=== PATIENT | female | born 2000 | race Caucasian/White ===

== ENCOUNTER 2021-09-18 03:07 | Emergency (ER) | payer OTHER, SELFPAY ==
--- NOTE | ~2021-09-18 | XR_ITS ---
EXAMINATION: XR chest 1V portable 09/18/2021 04:47 INDICATION: Chest pain PROCEDURE: AP portable chest COMPARISON: No prior studies for comparison. FINDINGS: The lungs are clear. The cardiomediastinal silhouette is within normal limits. There are no pleural effusions. There is no pneumothorax suspected. IMPRESSION: 1: NO ACUTE CARDIOPULMONARY DISEASE. Reviewed, dictated and finalized at location A. MATERNAL CHILD
--- NOTE | ~2021-09-18 | CT_ITS ---
EXAMINATION: CT BRAIN W/O DATE: 09/18/2021 04:48 INDICATION: Left arm numbness TECHNIQUE: Computed tomography (CT) of the head was performed without intravenous contrast. The dose- length product was 605.33 mGy-cm. Automated exposure control and iterative reconstruction technique w ere employed. COMPARISON: No prior studies for comparison. FINDINGS: Normal brain parenchymal volume for age. Normal harley-white differentiation. No acute intrac ranial hemorrhage, infarction, mass or mass effect. No ventriculomegaly or midline shift. Midline sagittal images demonstrate a normal corpus callosum, c raniovertebral junction and sella turcica. Basilar cisterns are patent. Paranasal sinuses and mastoids are pneumatized. No depressed skull fractures. IMPRESSION: 1. No acute intracranial abnormality. Reviewed, dictated and finalized at location A. [employer]
[2021-09-18 03:26] VITALS: PULSE 94
[2021-09-18 03:29] VITALS: BP 132/90; PULSE 108; RESP 20; TEMP 36.8; O2SAT 95
--- NOTE | 2021-09-18 03:30 | ECG_ITS ---
Measurements Intervals Luther Rate: 95 P: 72 ME: 160 QRS: 79 QRSD: 93 T: 50 QT: 351 QTc: 442 Interpretive Statements SINUS RHYTHM WITH SINUS ARRHYTHMIA POSSIBLE LEFT ATRIAL ENLARGEMENT INCOMPLETE RIGHT BUNDLE BRANCH BLOCK BASELINE ARTIFACT- II, AVR, AVL, AVF BORDERLINE ECG Electronically Signed On 09-18-2021 7:57:45 [employer] by Kobi Ellis D.O.
[2021-09-18 03:53] LABS: Basophils Absolute Auto 0.03 K/mm3 (0.00-0.10); Basophils Percent Auto 0.3 % (0.0-1.0); Eosinophils Absolute Auto 0.15 K/mm3 (0.02-0.50); Eosinophils Percent Auto 1.4 % (1.0-6.0); Hematocrit 41.2 % (35.0-49.0); Immature Granulocyte Absolute 0.04 K/mm3 (0.00-0.00); Immature Granulocyte Percent A 0.4 % (0.0-0.0); Lymphocytes Percent Auto 17.4 % (18.0-42.0); Mean Corpuscular Hemoglobin 32.6 pg (27.0-31.0); Mean Corpuscular Volume 95.8 fL (78.0-102.0); Mean Platelet Volume 9.6 fl (9.2-11.8); Monocytes Percent Auto 5.5 % (2.0-11.0); Neutrophils Absolute Auto 8.2 K/mm3 (1.7-7.2); Platelet Count Result 172 K/mm3 (150-420); Red Cell Distribution Width 12.3 % (11.6-14.4); White Blood Count 10.9 K/mm3 (4.8-10.8)
[2021-09-18] MEDS: KETOROLAC (*BKC) 60 MG/2 ML VIAL IM (03:53)
[2021-09-18] MEDS: ASPIRIN 81 MG CHEWABLE TABLET 324 MG PO (03:53)
--- NOTE | 2021-09-18 04:05 | ED.CHESTPAIN ---
HPI - Chest Pain General Chief Complaint: Chest Pain Stated Complaint: SHORTNESS OF BREATH Time Seen by Provider: 09/18/21 03:10 Source: patient and RN notes reviewed Mode of arrival: ambulatory Limitations: no limitations History of Present Illness complaint: chest pain and other (also left upper and lower molar toothache x 1 day. chest pain started 2 weeks ago.) Onset (ago): week(s) (2) Timing of current episode: other (2 hrs.) Prior episodes: Yes Onset: during rest Pain location: substernal Pain radiation: none Severity: mild Quality: heaviness and dull Relieving factors: nothing Exacerbating factors: nothing Associated symptoms: other (left arm numbness. Pt also had left upper and lower molar toothaches.) Treatment prior to arrival: none Risk Factors Coronary artery disease risk factors: smoking history Related Data Allergies Allergy/AdvReac Type Severity Reaction Status Date / Time No Known Allergies Allergy Verified 09/18/21 03:24 Review of Systems Review of Systems: All systems reviewed & are unremarkable except as noted in HPI and below Constitutional: Constitutional: Reports as per HPI [facility] Past Medical History Medical History Atypical chest pain Left arm numbness Tooth caries Exam Const: General: no acute distress and alert Nutritional Appearance: thin Orientation/consciousness: patient oriented x3 Limitations: no limitations HENMT: Head: normal to inspection Ears: external ears normal, TM's normal bilaterally and EAC's normal General nose exam: Normal external nose present and Normal nares present Face and sinus: sinuses nontender Mouth: Yes lip normal and Yes moist mucous membranes Teeth and gingiva: abnormal tooth and associated gingiva (multiple caries and broken teeth.) Eyes: Conjunctivae: conjunctivae normal Pupils: Equal, round and reactive pupils present EOM: EOMs intact bilaterally Neck: Neck: normal visual inspection and no lymphadenopathy Other: supple neck Chest: Chest palpation & inspection: normal inspection of the chest Resp: Effort & Inspection: normal respiratory effort Auscultation: clear to auscultation bilaterally Cardio: Rate: regular rate Rhythm: regular rhythm GI: GI Palp: Yes Soft to palpation and No Tenderness to palpation present (GI) : General: Yes bladder normal to palpation and Yes no CVA tenderness Back/Spine/Pelvis: Back: no CVA tenderness Skin: General skin exam: normal color Rashes: no rashes Neuro: General: patient oriented x3, moves all extremities, no meningeal signs, no focal motor deficits and CN's II-XI intact bilaterally Extrem: General: normal to inspection and no pedal edema Psych: Appearance: grossly normal Mental Status: mental status grossly normal Affect: normal affect Attitude: cooperative Thought content: Yes Normal thought content present Course Course Emergency Course: Pt was stable and pain-free in the ED. Reevaluation(s) Reevaluation #1: VSS. Date: 09/18/21 Time: 04:03 Vital Signs Vital signs: Vital Signs Pulse Rate 94 09/18/21 03:26 Temperature 36.8 C 09/18/21 03:29 Pulse Rate 108 H 09/18/21 03:29 Respiratory Rate 20 09/18/21 03:29 Blood Pressure 132/90 09/18/21 03:29 Pulse Oximetry 95 09/18/21 03:29 MDM - Chest Pain Differential Diagnosis Differential diagnosis: Likely atypical chest pain, chest pain and other (tooth caries, left arm numbness.) Medical Records Data Attestation: I reviewed the patient's medical records. Lab Data Attestation: I reviewed the patient's lab results. Result diagrams: 09/18/21 03:48 09/18/21 03:48 Labs: Lab Results 09/18/21 09/18/21 09/18/21 Range/Units 03:29 03:29 03:36 WBC (4.8-10.8) K/mm3 RBC (4.20-5.40) M/mm3 Hgb (12.0-15.0) g/dL Hct (35.0-49.0) % MCV (78.0-102.0) fL MCH (27.0-31.0) pg MCHC (32.0-36.0) g/dL
[2021-09-18 04:13] LABS: SPREG INTERNAL CONTROL Positive; Serum Qual hCG Negative
[2021-09-18] MEDS: SODIUM CHLORIDE 0.9% IV 500 ML 999 ML IV CONT (04:13)
[2021-09-18 04:15] LABS: Alanine Aminotransferase 15 U/L (14-59); Alkaline Phosphatase 88 U/L (46-116); Anion Gap 8 mmol/L (8-16); Aspartate Amino Transferase 10 U/L (15-37); Bilirubin,Total 0.1 mg/dL (0.00-1.00); Blood Urea Nitrogen 12 mg/dL (7-18); Calcium 8.6 mg/dL (8.5-10.1); Carbon Dioxide 28 mmol/L (21-32); Chloride 102 mmol/L (98-108); Estimated CRCL calculation 80 ml/min; Estimated Glomerular Filt Rate > 60; Glucose 127 mg/dL (70-99); NT Pro B Type Natriuretic Pept 59 pg/mL (0-125); Osmolality Calculated 287 mOsm/kg (285-295); Potassium 3.5 mmol/L (3.5-5.1); Sodium 138 mmol/L (136-145)
[2021-09-18 04:17] LABS: Troponin I 4.6 ng/L (0.00-60.4)
[2021-09-18 04:40] LABS: Add Urine Microscopic? NO; Appearance Urine Clear (Clear); Bilirubin Urine Negative (Negative); Blood Urine Negative (Negative); Color Urine Light Yellow (Yellow); Glucose Urine UA Negative (Negative); Ketones Urine Negative (Negative); Leukocyte Esterase Ur Negative LEU/UL (Negative); Nitrate Urine Negative (Negative); Protein Urine Negative (Negative); Specific Grav Ur <= 1.005 (1.010-1.020); Urobilinogen Urine 0.2 mg/dL (0.2-1.0)
[2021-09-18 04:47] LABS: Amphetamine Screen Urine Negative (Negative); Barbiturate Screen Urine Negative (Negative); Benzodiazepines Screen Urine Negative (Negative); Cannabinoid Screen Urine Positive (Negative); Cocaine Screen Urine Negative (Negative); Methadone Screen Urine Negative (Negative); Opiate Screen Urine Negative (Negative); Phencyclidine Screen Urine Negative (Negative)
[2021-09-18 06:06] VITALS: BP 112/66; PULSE 84; RESP 15; TEMP 37.1; O2SAT 98
== END 2021-09-18 06:09 | disposition home or self-care (01) ==
PROVIDERS: Emergency Provider Emergency Medicine
DX: R07.89 Other chest pain (principal); R20.0 Anesthesia of skin; K02.9 Dental caries, unspecified
CPT/HCPCS: 36415; 70450; 71045; 80053; 80307; 81003; 83880; 84484; 84703; 85025; 93005; 96360; 96372; 99284; A9270; J1885; J7040

== ENCOUNTER 2022-04-09 14:08 | Emergency (ER) | payer OTHER, SELFPAY ==
--- NOTE | ~2022-04-09 | XR_ITS ---
EXAMINATION: XR chest 1V portable Exam Date/Time: 04/09/2022 14:56 CDT HISTORY: fever, CHEST PAIN WITH INSPIRATION. Comparison: 09/18/2021. RESULT: Lines, tubes, and devices: None. Lungs and pleura: Clear. Cardiomediastinal silhouette: Stable. Other: No acute osseous or upper abdominal finding. IMPRESSION: No acute cardiopulmonary process. Reviewed, dictated and finalized at location K.
[2022-04-09 14:35] VITALS: BP 113/67; PULSE 90; RESP 14; TEMP 36.7; O2SAT 99
[2022-04-09 15:30] LABS: Basophils Absolute Auto 0.01 K/mm3 (0.00-0.10); Basophils Percent Auto 0.2 % (0.0-1.0); Eosinophils Absolute Auto 0.08 K/mm3 (0.02-0.50); Eosinophils Percent Auto 1.6 % (1.0-6.0); Hematocrit 41.9 % (35.0-49.0); Hemoglobin 14.2 g/dL (12.0-15.0); Immature Granulocyte Absolute 0.01 K/mm3 (0.00-0.00); Immature Granulocyte Percent A 0.2 % (0.0-0.0); Lymphocytes Absolute Auto 2.09 K/mm3 (1.10-4.50); Lymphocytes Percent Auto 42.1 % (18.0-42.0); Mean Corpuscular HGB Conc 33.9 g/dL (32.0-36.0); Mean Corpuscular Volume 94.4 fL (78.0-102.0); Mean Platelet Volume 9.4 fl (9.2-11.8); Monocytes Absolute Auto 0.26 K/mm3 (0.10-0.90); Monocytes Percent Auto 5.2 % (2.0-11.0); Neutrophils Absolute Auto 2.5 K/mm3 (1.7-7.2); Neutrophils Percent Auto 50.7 % (50.0-70.0); Platelet Count Result 179 K/mm3 (150-420); Red Blood Count 4.44 M/mm3 (4.20-5.40); Red Cell Distribution Width 12.2 % (11.6-14.4)
[2022-04-09] MEDS: SODIUM CHLORIDE 0.9% IV 500 ML 999 ML IV CONT (15:31)
[2022-04-09 15:45] VITALS: BP 121/64; PULSE 89; RESP 18; O2SAT 100
[2022-04-09 15:48] LABS: Add Urine Microscopic? NO; Appearance Urine Clear (Clear); Bilirubin Urine Negative (Negative); Blood Urine Negative (Negative); Color Urine Light Yellow (Yellow); Glucose Urine UA Negative (Negative); Ketones Urine Negative (Negative); Leukocyte Esterase Ur Negative (Negative); Nitrate Urine Negative (Negative); Protein Urine Negative (Negative); Specific Grav Ur 1.015 (1.010-1.020); Urobilinogen Urine 0.2 mg/dL (0.2-1.0)
[2022-04-09 15:50] LABS: SPREG INTERNAL CONTROL Positive; Serum Qual hCG Negative
[2022-04-09 15:59] LABS: Strep Group A RT-PCR Negative (Negative)
[2022-04-09 16:10] LABS: Influenza A QL RT-PCR Negative (Negative); Influenza B QL RT-PCR Negative (Negative); SARS-CoV-2 RNA PCR Negative (Negative)
--- NOTE | 2022-04-09 16:20 | ED.GENADULT ---
HPI - General Adult General Chief complaint: Unspecified Stated complaint: eye pain, body aches, hot flashes, vomiting, tired Time Seen by Provider: 04/09/22 14:11 Source: patient and RN notes reviewed Mode of arrival: ambulatory Limitations: no limitations History of Present Illness HPI narrative: sore throat and chest wall pain especially on deep inspiration. Onset (ago): day(s) (2) Location: eyes and chest Radiation: non-radiation Severity: moderate Severity scale (1-10): 7 Quality: dull Pain Consistency: constant Relieving factors: rest Treatments prior to arrival: NSAID Related Data Allergies Allergy/AdvReac Type Severity Reaction Status Date / Time No Known Allergies Allergy Verified 04/09/22 15:04 Review of Systems Review of Systems: All systems reviewed & are unremarkable except as noted in HPI and below Constitutional: Constitutional: Reports body ache(s) and Reports fever(s) Eyes: Eyes: Reports eye pain ENT: Reports system reviewed and no additional complaints, except as documented Cardiovascular: Cardiovascular: Reports no additional cardiovascular complaints Respiratory: Respiratory: Reports no additional respiratory complaints Gastrointestinal: Gastrointestinal: Reports no additional gastrointestinal complaints Genitourinary: Genitourinary: Reports no additional female genitourinary complaints Musculoskeletal: Musculoskeletal: Reports no additional musculoskeletal complaints Integumentary/Breasts: Skin/Breast: Reports system reviewed and no additional complaints, except as docu Neurologic: Reports system reviewed and no additional complaints, except as documented Psychiatric: Psychiatric: Reports no additional psychiatric complaints Endocrine: Endocrine: Reports no additional endocrine complaints Hematologic/Lymphatic: Hematologic/Lymphatic: Reports no additional hematologic/lymphatic complaints Allergic/Immunologic: Allergic/Immunologic: Reports no additional allergic/immunologic complaints [facility] Past Medical History Medical History Atypical chest pain Left arm numbness Pleurisy Tooth caries Exam Const: General: no acute distress Nutritional Appearance: thin Orientation/consciousness: patient oriented x3 Limitations: no limitations HENMT: Head: normal to inspection and other (mild pharyngeal hyperemia.) Ears: external ears normal, TM's normal bilaterally and EAC's normal General nose exam: Normal external nose present and Normal nares present Face and sinus: normal facial exam and sinuses nontender Mouth: Yes Normal oral and palatal mucosa present and Yes moist mucous membranes Teeth and gingiva: dentition normal Throat: posterior oropharynx normal Eyes: Conjunctivae: conjunctivae normal Pupils: Equal, round and reactive pupils present EOM: EOMs intact bilaterally Neck: Neck: normal visual inspection, no lymphadenopathy and no meningeal signs Chest: Chest palpation & inspection: normal inspection of the chest Resp: Effort & Inspection: normal respiratory effort Auscultation: clear to auscultation bilaterally Cardio: Rate: regular rate Rhythm: regular rhythm GI: GI Palp: Yes Soft to palpation and No Tenderness to palpation present (GI) Auscultation: normal bowel sounds : General: Yes bladder normal to palpation and Yes no CVA tenderness Bimanual exam- vagina & uterus: bladder normal to palpation Back/Spine/Pelvis: Back: no CVA tenderness Skin: General skin exam: normal color Rashes: no rashes Wounds: no wounds Neuro: General: patient oriented x3, moves all extremities, no meningeal signs, no focal motor deficits and CN's II-XI intact bilaterally Cranial nerves: Yes Equal, round and reactive pupils present and Yes Nystagmus not present Speech: normal speech Gait exam (Neuro): Normal gait present Extrem: General: normal to inspection and no pedal edema Psych: Mental Status: mental status grossly norm
[2022-04-09 16:44] VITALS: BP 121/84; PULSE 84; RESP 16; TEMP 36.6; O2SAT 100
[2022-04-09] MEDS: guaiFENesin 12 HR 600 MG TABCR PO (16:58)
[2022-04-09] MEDS: KETOROLAC 30 MG/ML VIAL (*BKC) IM (16:59)
== END 2022-04-09 17:15 | disposition home or self-care (01) ==
PROVIDERS: Emergency Provider Emergency Medicine; PCP Family Medicine
DX: R09.1 Pleurisy (principal); J02.9 Acute pharyngitis, unspecified; Z20.822 Contact with and (suspected) exposure to COVID-19
CPT/HCPCS: 71045; 81003; 84703; 85025; 87502; 87651; 96365; 96372; 99284; A9270; C9803; J0696; J1885; J7040; U0003; U0005